=== PATIENT | female | born 1960 | race African-American/Black ===

== ENCOUNTER → 2016-11-24 | Outpatient (CLI) | payer OTHER ==
[2016-11-24 13:23] LABS: BUN/CREATININE RATIO 6.25; CALCIUM SERUM 9.3 mg/dL (8.4-10.2); CREATININE SERUM 0.8 mg/dL (0.6-1.4); POTASSIUM 3.6 mmol/L (3.5-5.1)
[2016-11-24 14:18] LABS: THYROID STIMULATING HORMONE 0.43 uIU/ml (0.34-5.60)
[2016-11-24 14:25] LABS: FREE THYROXIN (T4) 0.9 ng/dL (0.58-1.64)
== END | disposition home or self-care (01) ==
LOC: CLAB 12:30
PROVIDERS: Internal Medicine Cardiovascular Disease
DX: R00.2 Palpitations (principal)
CPT/HCPCS: 36415; 80048; 84439; 84443